=== PATIENT | male | born 1990 | race Caucasian/White ===

== ENCOUNTER 2024-11-13 14:41 | Emergency (ER) | payer OTHER ==
[~2024-11-13] VITALS: Ht 180.3 cm; Wt 105.0 kg
[~2024-11-13 14:41] MED LIST: BENZTROPINE MESY1 MG PO; CYCLOBENZAPRINE10 MG PO; EPIN0.3P INJ; FEOSOL325 MG PO; MELATONIN3 MG PO; OLANZAPINE15 MG PO; OLANZAPINE5 MG PO; POLYETHYLENE G500 GM MISC; SENNA8.6 MG PO; SERTRALINE HCL100 MG PO; TRAZODONE HCL150 MG PO; VITAMIN B-121000 MC3 PO; VITAMIN C500 M1 PO
[2024-11-13] MEDS ORDERED: EPIPEN AUTO INJECTOR 0.3 MG/0.3 ML ML IM ONE (15:00)
[2024-11-13] MEDS ORDERED: FAMOTIDINE 20 MG TAB PO ONE (15:00)
[2024-11-13] MEDS ORDERED: predniSONE 20 MG TAB PO ONE (15:00)
[2024-11-13] MEDS ORDERED: EPIPEN 2-P0.3 MG/0.3 IM (15:06)
[2024-11-13] MEDS ORDERED: BENADRYL25 MG PO (15:06)
[2024-11-13] MEDS ORDERED: PREDNISONE20 MG PO (15:06)
[2024-11-13 15:54] VITALS: BP 132/60
== END 2024-11-13 15:54 | disposition home or self-care (01) ==
LOC: ED 14:41
DX: T63.441A Toxic effect of venom of bees, accidental (unintentional), initial encounter (principal); T78.2XXA Anaphylactic shock, unspecified, initial encounter; K21.9 Gastro-esophageal reflux disease without esophagitis; F31.9 Bipolar disorder, unspecified; Z79.899 Other long term (current) drug therapy; Z91.030 Bee allergy status
CPT/HCPCS: 96372; 99282-25; J0169; J1200; J7512